=== PATIENT | female | born 1970 | race Caucasian/White ===

== ENCOUNTER → 2016-04-27 | Outpatient (CLI) | payer BC ==
--- NOTE | 2016-04-27 11:13 | MRI ---
Study: MRI of the Left Shoulder. Indication: LEFT SHOULDER PAIN Technique: Multiplanar, multi sequence MRI of the left shoulder was obtained without intravenous contrast. Comparison: None. Findings: Moderate AC joint osteoarthritis with reactive marrow edema distal clavicular head. Type 1 acromion with moderate downsloping. Trace subacromial/subdeltoid bursal fluid. Supraspinatus and infraspinatus tendinosis with mild cystic change greater tuberosity. No fluid-filled tear. Subscapularis tendinosis. Teres minor tendon intact. Rotator cuff musculature normal without atrophy, fatty infiltration or intramuscular edema. Long head biceps tendon intact. Anterior superior sublabral foramen noted. There is however undersurface tearing at the superior labrum with additional free edge truncation throughout the posterior labrum. Minimal glenohumeral joint osteoarthritis without acute fracture or osseous contusion. Impression: Supraspinatus, infraspinatus, subscapularis tendinosis without fluid-filled tear defect. Undersurface tearing superior labrum with free edge truncation posterior labrum. Minimal glenohumeral joint osteoarthritis. Moderate AC joint osteoarthritis. Electronically signed by: Francis Cardona MD 04/27/2016 11:10
== END ==
LOC: MRI 09:31
PROVIDERS: ATTEND Family Medicine
DX: M19.012 Primary osteoarthritis, left shoulder (principal); S43.432A Superior glenoid labrum lesion of left shoulder, initial encounter

== ENCOUNTER → 2016-04-27 | Outpatient (CLI) | payer BC | LOC: LAB.NP 10:33 | PROVIDERS: ATTEND Family Medicine | DX: D51.3 Other dietary vitamin B12 deficiency anemia (principal); R53.83 Other fatigue; E55.9 Vitamin D deficiency, unspecified ==

== ENCOUNTER → 2016-11-08 | Outpatient (CLI) | payer BC | LOC: GMAL 17:28 | PROVIDERS: ATTEND Family Medicine | DX: E55.9 Vitamin D deficiency, unspecified (principal) ==

== ENCOUNTER → 2016-12-01 | Outpatient (CLI) | payer BC ==
--- NOTE | 2016-12-01 16:18 | RAD ---
EXAM DESCRIPTION: Shoulder,Left 2 or More Views CLINICAL HISTORY: 46 years Female, SHOULDER PAIN COMPARISON: None. FINDINGS: 4 views of the left shoulder show no acute fracture or malalignment. The left AC joint is well-maintained. No soft tissue abnormality. IMPRESSION: Negative exam. Electronically signed by: Wilfrido Teixeira MD 12/01/2016 4:17 PM CDT Workstation: [facility]
== END | disposition home or self-care (01) ==
LOC: RAD 08:44
PROVIDERS: ATTEND Orthopaedic Surgery
DX: M25.512 Pain in left shoulder (principal)

== ENCOUNTER → 2016-12-12 | Outpatient (CLI) | payer BC | END | disposition home or self-care (01) | LOC: GMAL 14:49 | PROVIDERS: ATTEND Family Medicine | DX: R30.0 Dysuria (principal) ==

== ENCOUNTER → 2016-12-19 | Outpatient (CLI) | payer BC | LOC: RESP 10:44 | PROVIDERS: ATTEND Orthopaedic Surgery | DX: Z01.818 Encounter for other preprocedural examination (principal) ==

== ENCOUNTER 2016-12-28 05:56 | Day surgery (SDC) | payer BC ==
--- NOTE | 2016-12-26 09:21 | HP ---
CHIEF COMPLAINT: Left shoulder pain. HISTORY OF PRESENT ILLNESS: Betsey is a 46-year-old female with a history of pain in the left shoulder that has been there for at least a year. She has had re-injections and a course of physical therapy, however, has failed to get ongoing relief. Because of her short-term relief, she has requested operative intervention. After discussing the risks, benefits and alternatives to a Maddie, the patient has given informed consent. She has an MRI which shows no significant tearing of the rotator cuff. She does have significant osteoarthritis and her symptoms area most prominent over the acromioclavicular joint. PAST SURGICAL HISTORY: 1. Multiple back surgeries. 2. Cholecystectomy. MEDICATIONS: 1. Ibuprofen. 2. Vitamin D. ALLERGIES: NO KNOWN DRUG ALLERGIES. CODE STATUS: Full code. IMMUNIZATIONS: Up to date. SOCIAL HISTORY: The patient does not drink or use any illicit drugs. She does smoke. FAMILY HISTORY: None pertinent to today's complaint. REVIEW OF SYSTEMS: Negative except as indicated in the History of Present Illness. PHYSICAL EXAMINATION: VITAL SIGNS: Blood pressure 120/71. Pulse 91. Height 5'2". Weight 134. MENTAL STATUS: The patient is awake, alert, and is able to give a good history and participate in the physical. The patient is oriented to person, place and time. SKIN: Normal tone and turgor. MUSCULOSKELETAL: She is extremely tender over the acromioclavicular joint and has moderate subacromial tenderness. She has pain with cross-chest adduction as well as pain with Neer and Cuevas testing. She does have full abduction as well as forward flexion, but has pain with abduction and forward flexion of about 90 degrees. Strength is 5/5 in medical technologist blood bank. IMAGING: X-rays and MRI show some acromioclavicular joint arthritis. There is no evidence of full thickness rotator cuff tear on the MRI. ASSESSMENT: 1. Subacromial impingement. PLAN: The plan at this point is for subacromial decompression and distal clavicle resection. We have discussed the risks, benefits, and alternatives to that and the patient has given informed consent. #[id number] [facility]
[2016-12-28] MEDS ORDERED: LACTATED RINGERS 1,000 ML ONE (06:15)
[2016-12-28] MEDS ORDERED: ceFAZolin SODIUM 1 GM VIAL ONE ×2 (06:15→09:26)
[2016-12-28] MEDS ORDERED: SODIUM CHL 0.9% 100ML MINI-BAG 100 ML IVPB ONE (06:15)
[2016-12-28] MEDS ORDERED: SODIUM CHL 0.9% 50ML MIN-BAG+ 50 ML IVPB ONE (06:17)
[2016-12-28] MEDS ORDERED: PROPOFOL 200 MG/20 ML VIAL IV ONE (09:00)
[2016-12-28] MEDS ORDERED: ATROPINE SULFATE 0.4 MG/ML 1ML VIAL ONE (09:00)
[2016-12-28] MEDS ORDERED: NEOSTIGMINE METHYLSULFATE 1 MG/ML ML IV ONE (09:00)
[2016-12-28] MEDS ORDERED: fentaNYL CITRATE INJ 50 MCG/ML AMP ONE (09:22)
[2016-12-28] MEDS ORDERED: ROCURONIUM BROMIDE 10 MG/ML VIAL ONE (09:22)
[2016-12-28] MEDS ORDERED: LIDOCAINE 2 % GEL 5 ML TUBE TOP ONE (09:23)
[2016-12-28] MEDS ORDERED: BUPIVACAINE 0.5% W/EPI 30 ML VIAL INJ ONE (09:26)
[2016-12-28] MEDS ORDERED: LIDOCAINE 1% W/ EPINEPHRINE 20 ML VIAL INJ ONE (09:26)
[2016-12-28] MEDS ORDERED: VANCOMYCIN HCL INJ 1,000 MG VIAL IVPB ONE (09:26)
[2016-12-28] MEDS ORDERED: HYDROcodone 5MG/APAP 325MG 1 EA TAB ONE (13:18)
[2016-12-28] MEDS ORDERED: HYDROcodone 5MG/APAP 325MG 1 EA TAB PO ONE (13:30)
[2016-12-28 13:32] VITALS: O2SAT 99
[2016-12-28 14:14] VITALS: BP 118/79; TEMP 98
--- NOTE | 2017-01-02 08:50 | OP ---
DATE OF PROCEDURE: 12/28/16 PREOPERATIVE DIAGNOSIS: 1. Subacromial impingement. POSTOPERATIVE DIAGNOSIS: 1. Subacromial impingement. PROCEDURE: 1. Subacromial decompression. 2. Distal clavicle resection. SURGEON: Matt Jack MD. CIVIL CAD DESIGNER: Rasheed Herndno CST, SA-C. ANESTHESIA: General. COMPLICATIONS: None. FINDINGS: 1. Severe arthritis. 2. Overhanging acromion. 3. Bursitis. INDICATION: Betsey has a long history of shoulder pain for which she has had injections, physical therapy, anti-inflammatories and activity modification. Unfortunately, she has failed to get relief with these conservative measures. Because of her ongoing pain, she has requested operative intervention. After discussing the risks, benefits and alternatives to that, the patient gave informed consent for the above procedure. PROCEDURE: The patient was brought to the Operating Room and placed in the supine position. General anesthesia was induced and the patient was then transitioned into the beach chair position. The arm and shoulder were then sterilely prepped and draped. Following prepping and draping, an incision was made at the lateral border of the acromion. Full thickness skin flaps were developed. A split was made between the anterior and middle heads of the deltoid and a complete bursectomy was performed. Following bursectomy, a partial acromioplasty was performed. Following that, the deltoid was reapproximated and the acromioclavicular joint was identified. Full thickness periosteal flaps were developed and the distal 1 cm of the clavicle was resected. Following resection of the clavicle, the wound was very thoroughly irrigated. It was examined to ensure no bony osteophytes or debris remained. The periosteum was reapproximated and the wound was again irrigated and closure of the skin was performed with a combination of subcuticular and Nylon sutures. Sterile dressing was placed. The patient was placed in a sling, placed in a supine position, awoken from anesthesia and taken to Recovery. POSTOPERATIVE INSTRUCTIONS: She will be very limited for the time being and will followup with us in two days. We will talk about beginning physical therapy at that time. [facility][id number] [facility]
== END 2016-12-28 14:20 | disposition home or self-care (01) ==
LOC: AMB 05:56
PROVIDERS: ATTEND Orthopaedic Surgery
DX: M75.42 Impingement syndrome of left shoulder (principal); M19.012 Primary osteoarthritis, left shoulder; M75.52 Bursitis of left shoulder; K21.9 Gastro-esophageal reflux disease without esophagitis; F17.210 Nicotine dependence, cigarettes, uncomplicated; Z79.1 Long term (current) use of non-steroidal anti-inflammatories (NSAID)
CPT/HCPCS: 00450; 23120; J0690; J2060; J2710; J3010; J3370; J3490; J7050; J7120

== ENCOUNTER → 2017-08-28 | Outpatient (CLI) | payer BC | LOC: GMAJS 17:35 | PROVIDERS: ATTEND Physician Assistant | DX: Z20.2 Contact with and (suspected) exposure to infections with a predominantly sexual mode of transmission (principal); F41.1 Generalized anxiety disorder ==

== ENCOUNTER 2017-10-06 05:34 | Emergency (ER) | payer BC ==
[2017-10-06 06:01] VITALS: TEMP 97.8
--- NOTE | 2017-10-06 06:33 | ED.PDOC ---
History of Present Illness - General Chief Complaint: Upper Extremity Injury Stated Complaint: shoulder pain Time Seen by Provider: 10/06/17 06:28 Source: patient, RN notes reviewed Additional Information: 47 YEAR OLD COMPLAINTS OF SUDDEN ONSET OF PAIN ON THE LEFT SCAPULAR AREA SINCE YESTERDAY AFTER SHE DID SOME STRETCHING ON EXAM SHOULDER CONTOUR AND DELTOID NORMAL SHE HAS MUSCLE SPASM MEDIAL TO THE SCAPULAR MEDIAL BORDER OVER THE RHOMBOIDS NO MIDLINE TENDERNESS NO SWELLING NO HEAT NOTED - History of Present Illness Occurred: this evening Pain - Upper Extremity: moderate: Shoulder, left Method of Injury: twisted Improving Factors: nothing Worsening Factors: nothing Allergies/Adverse Reactions: Allergies NO KNOWN ALLERGY Allergy (Verified 12/26/16 14:27) Home Medications: Ambulatory Orders Ibuprofen [Motrin] 200 mg PO Q4HWA PRN 12/26/16 Tramadol HCl [Ultram] 50 mg PO Q4HR PRN 12/26/16 Acetamin W/Cod #3 Tab [Tylenol w/CODEINE #3] 1 ea PO Q6HR PRN #40 tab 10/06/17 Methocarbamol [Robaxin] 750 mg PO Q8H 10 Days #30 tab 10/06/17 Review of Systems - Review of Systems Constitutional: States: no symptoms reported EENTM: States: no symptoms reported Respiratory: States: no symptoms reported Cardiology: States: no symptoms reported Gastrointestinal/Abdominal: States: no symptoms reported Genitourinary: States: no symptoms reported Musculoskeletal: States: no symptoms reported Skin: States: no symptoms reported Neurological: States: no symptoms reported Endocrine: States: no symptoms reported Hematologic/Lymphatic: States: no symptoms reported Past Medical History (General) - Patient Medical History Hx Congestive Heart Failure: No Hx Diabetes: No Hx MRSA: No Surgical History: other - Vaccination History Hx Tetanus, Diphtheria Vaccination: No Hx Influenza Vaccination: Yes - 2012 Hx Pneumococcal Vaccination: No - Social History Hx Tobacco Use: Yes Hx Alcohol Use: Yes - occ - Female History Hx Last Menstrual Period: 12/28/16 Family Medical History - Family History Father Hx Family Cancer: Yes Grandparents Hx Family Cancer: Yes Physical Exam - Physical Exam General Appearance: Alert, Comfortable Eyes, Ears, Nose, Throat Exam: PERRL/EOMI, normal ENT inspection, TMs normal Neck: non-tender, full range of motion, supple Cardiovascular/Respiratory: regular rate, rhythm, no M/R/G, normal peripheral pulses Abdominal Exam: non-tender, no organomegaly, no hernia Back Exam: normal inspection, no CVA tenderness, no vertebral tenderness Shoulder Exam: normal inspection, non-tender, no evidence of injury, limited ROM - SHE HAS MUSCLE SPASM ON THE MEDIAL SIDE OF LEFT SCAPULA ON THE PARAVERTEBRAL MUSCLES Departure - Departure Clinical Impression: Sprain and strain of shoulder and upper arm Time of Disposition: 06:41 Disposition: Discharge to Home or Self Care Condition: Good Departure Forms: ED Discharge - Pt. Copy, Patient Portal Self Enrollment Diet: resume usual diet Referrals: Bandar Dalton III, MD [Primary Care Provider] - 1-2 Weeks Home Medications: Ambulatory Orders Ibuprofen [Motrin] 200 mg PO Q4HWA PRN 12/26/16 Tramadol HCl [Ultram] 50 mg PO Q4HR PRN 12/26/16 Acetamin W/Cod #3 Tab [Tylenol w/CODEINE #3] 1 ea PO Q6HR PRN #40 tab 10/06/17 Methocarbamol [Robaxin] 750 mg PO Q8H 10 Days #30 tab 10/06/17 Comments: FOLLOW UP WITH PCP IF NOT IMPROVED
--- NOTE | 2017-10-06 06:33 | RAD ---
Procedure: XR left SHOULDER 2 OR MORE VIEWS Exam Date: 10/06/2017 Ordering Provider: Lurdes Oliva Clinical Indication: left shoulder pain Comparison: 12/01/2016 FINDINGS: There is widening of the acromioclavicular joint which is new compared to prior. No acute fracture. Glenohumeral joint is intact. No lytic or sclerotic lesions. IMPRESSION: 1. Widening of the acromioclavicular joint is new compared to prior. No acute fracture. Electronically signed by: Ashwin Del Valle MD 10/06/2017 6:32 AM CDT
[2017-10-06] MEDS ORDERED: KETOROLAC TROMETHAMINE INJ 60 MG/2 ML VIAL IM ONE (06:38)
[2017-10-06 07:00] VITALS: BP 115/80; O2SAT 98
== END 2017-10-06 07:00 | disposition home or self-care (01) ==
LOC: ER 05:34
DX: S43.402A Unspecified sprain of left shoulder joint, initial encounter (principal); Z87.891 Personal history of nicotine dependence; X50.1XXA Overexertion from prolonged static or awkward postures, initial encounter; Y92.009 Unspecified place in unspecified non-institutional (private) residence as the place of occurrence of the external cause
CPT/HCPCS: 73030; J1885

== ENCOUNTER 2017-10-08 17:56 | Emergency (ER) | payer BC ==
[2017-10-08 18:13] VITALS: BP 131/77; TEMP 98.5; O2SAT 95
--- NOTE | 2017-10-08 18:39 | ED.PDOC ---
History of Present Illness - General Chief Complaint: Upper Extremity Injury Stated Complaint: numbness and tingling to left arm Time Seen by Provider: 10/08/17 18:15 Source: patient Exam Limitations: no limitations - History of Present Illness Initial Comments: Patient presents with shoulder pain for three days. The pain is located on the left mid-trapezius with radiation down the left arm to the fingertips. The pain is aching with a tingling quality. She has had previous episodes of left shoulder pain but they have felt different than this. Constant but intermittent in intensity. Worse with movement. Better with rest. No associated symptoms. Has tried tramadol and methocarbamol so far with no relief. She has had left shoulder surgery 9 months ago for "arthritis" and " bone spurs". Timing/Duration: other - 3 days Severity: moderate Improving Factors: rest Worsening Factors: medication Associated Symptoms: denies symptoms Allergies/Adverse Reactions: Allergies NO KNOWN ALLERGY Allergy (Verified 12/26/16 14:27) Home Medications: Ambulatory Orders Ibuprofen [Motrin] 200 mg PO Q4HWA PRN 12/26/16 Tramadol HCl [Ultram] 50 mg PO Q4HR PRN 12/26/16 Acetamin W/Cod #3 Tab [Tylenol w/CODEINE #3] 1 ea PO Q6HR PRN #40 tab 10/06/17 Methocarbamol [Robaxin] 750 mg PO Q8H 10 Days #30 tab 10/06/17 Ketorolac Tromethamine [Toradol Tabs] 10 mg PO Q6HRS PRN #16 tab 10/08/17 Meloxicam 7.5 mg PO DAILY #14 tab 10/08/17 Review of Systems - Review of Systems Constitutional: States: no symptoms reported EENTM: States: no symptoms reported Respiratory: States: no symptoms reported, cough Gastrointestinal/Abdominal: States: no symptoms reported Genitourinary: States: see HPI Musculoskeletal: States: see HPI Skin: States: no symptoms reported Neurological: States: see HPI Endocrine: States: no symptoms reported Hematologic/Lymphatic: States: no symptoms reported Past Medical History (General) - Patient Medical History Hx Stroke: No Hx Congestive Heart Failure: No Hx Diabetes: No Hx MRSA: No - Vaccination History Hx Tetanus, Diphtheria Vaccination: No Hx Influenza Vaccination: Yes - 2012 Hx Pneumococcal Vaccination: No - Social History Hx Tobacco Use: Yes Hx Alcohol Use: Yes - occ - Female History Hx Last Menstrual Period: 12/28/16 Family Medical History - Family History Father Hx Family Cancer: Yes Grandparents Hx Family Cancer: Yes Physical Exam - Physical Exam General Appearance: Alert Eye Exam: bilateral normal Ears, Nose, Throat: normal ENT inspection Neck: non-tender, full range of motion, other - Flexion/extension/rotation all cause tightness at the 6-7th cervical vertebrae. Spinous processes are NTTP. Respiratory: lungs clear, normal breath sounds Cardiovascular/Chest: normal peripheral pulses, regular rate, rhythm Gastrointestinal/Abdominal: normal bowel sounds, non tender, soft Extremity: other - Beer can's sign is positive. Abduction of the arms against resistance elicits the arm and shoulder paresthesia on the left but not on the right. Internal rotation and adduction of the left arm at a 90 degree flexed positiion against resistance does not elicit any pain. Depression of the left arm with attempted protraction against resistance does not cause any pain. Abduction of the left arm at 90 degree flexion with resistance to external rotation elicits the shoulder and arm pain on the left. Neurologic: mine motor engineer II-XII nml as tested, no motor/sensory deficits Skin Exam: normal color Lymphatic: no adenopathy Progress - Progress Progress: 10/08/17 19:16 Toradol 30 mg IM x one and Norflex 60 mg IM x one relieved the pain. Patient given RX for oral Toradol and Meloxicam. Departure - Departure Clinical Impression: Paresthesia and pain of left extremity Disposition: Discharge to Home or Self Care Condition: Good Departure Forms: ED Discharge - Pt. Copy, Patient Portal Self Enrollment Instructions: DI for Arm Pain Diet: resume usual diet Activity: increase activity as tolerated Referrals: Bandar Dalton III, MD [Primary Care Provider] - 1-2 Weeks Prescriptions: Ketorolac Tromethamine [Toradol Tabs] 10 mg PO Q6HRS PRN #16 tab PRN Reason: Mild To Moderate Pain Meloxicam 7.5 mg PO DAILY #14 tab Home Medications: Ambulatory Orders Ibuprofen [Motrin] 200 mg PO Q4HWA PRN 12/26/16 Tramadol HCl [Ultram] 50 mg PO Q4HR PRN 12/26/16 Acetamin W/Cod #3 Tab [Tylenol w/CODEINE #3] 1 ea PO Q6HR PRN #40 tab 10/06/17 Methocarbamol [Robaxin] 750 mg PO Q8H 10 Days #30 tab 10/06/17 Ketorolac Tromethamine [Toradol Tabs] 10 mg PO Q6HRS PRN #16 tab 10/08/17 Meloxicam 7.5 mg PO DAILY #14 tab 10/08/17 Additional Instructions: Call Dr. Jack this week to set up a possible MRI for definitive diagnosis.
[2017-10-08] MEDS ORDERED: KETOROLAC TROMETHAMINE INJ 60 MG/2 ML VIAL IM ONE (18:44)
[2017-10-08] MEDS ORDERED: ORPHENADRINE CITRATE 30 MG/ML AMP IV ONE (18:45)
[2017-10-08] MEDS ORDERED: ORPHENADRINE CITRATE 30 MG/ML AMP IM ONE (18:57)
== END 2017-10-08 19:25 | disposition home or self-care (01) ==
LOC: ER 17:56
DX: R20.2 Paresthesia of skin (principal); M25.512 Pain in left shoulder; Z98.890 Other specified postprocedural states; Z79.899 Other long term (current) drug therapy; Z87.891 Personal history of nicotine dependence
CPT/HCPCS: J1885; J2360

== ENCOUNTER → 2017-11-15 | Outpatient (CLI) | payer BC | LOC: LAB.O 07:38 | DX: Z01.812 Encounter for preprocedural laboratory examination (principal) ==

== ENCOUNTER → 2018-04-02 | Outpatient (CLI) | payer BC | LOC: GMAL 10:49 | PROVIDERS: ATTEND Family Medicine | DX: E55.9 Vitamin D deficiency, unspecified (principal) ==